=== PATIENT | female | born 1995 | race Caucasian/White ===

== ENCOUNTER 2016-11-02 10:46 | Emergency (ER) | payer OTHER ==
[~2016-11-02] VITALS: Ht 152.4 cm; Wt 84.0 kg
[2016-11-02 10:53] VITALS: Ht 152.4 cm; Wt 84.0 kg
[2016-11-02] MEDS ORDERED: UDROBDM PO (11:07)
[2016-11-02] MEDS ORDERED: AZIT250T94 PO (11:07)
--- NOTE | 2016-11-02 11:09 | ERD ---
ER Documentation Chief Complaint Date/Time DATE: 11/02/16 TIME: 11:07 Chief Complaint fever and cough x 1 week HPI 21-year-old female presents with fever and cough over the last week. She states there is productive sputum. There is no fever triage. There is no history of vomiting, abdominal pain, diarrhea, urinary complaints, neck stiffness, rashes. ROS All systems reviewed and are negative except as per history of present illness. Medications Home Meds Active Scripts Guaifenesin-Dextromethorphan* (Robitussin* DM) 100MG/10MG/5ML Syrup, 5 ML PO Q4H for 5 Days, ML Prov:DONYA RUSH MD 11/02/16 Azithromycin* (Zithromax*) 250 Mg Tablet, 250 MG PO .ZPACK DIRECTED, #6 TAB TAKE 500 MG (2 TABS) THE FIRST DAY THEN 250 MG (1 TAB) DAYS 2-5 Prov:DONYA RUSH MD 11/02/16 Reported Medications [None] No Conflict Check 05/19/12 Allergies Allergies: Coded Allergies: No Known Drug Allergies (Verified Allergy, Unknown, 07/05/14) No Known Drug Allergy (Verified Allergy, Unknown, 01/19/14) PMhx/Soc History of Surgery: No Anesthesia Reaction: No Hx Neurological Disorder: No Hx Respiratory Disorders: No Hx Cardiac Disorders: No Hx Psychiatric Problems: No Hx Miscellaneous Medical Probl: No Hx Alcohol Use: No Hx Substance Use: No Hx Tobacco Use: No Physical Exam Vitals Vital Signs Date Time Temp Pulse Resp B/P Pulse Ox O2 Delivery O2 Flow Rate FiO2 11/02/16 10:53 98.2 100 18 126/72 97 Physical Exam Const: [] Alert, [id number]. Pleasant. Head: Atraumatic Eyes: Normal Conjunctiva ENT: Normal External Ears, Nose and Mouth. TMs and oropharynx normal. Neck: Full range of motion..~ No meningismus. Resp: Clear to auscultation bilaterally. No rales or wheezing retractions appreciated. Cardio: Regular rate and rhythm, no murmurs Abd: Soft, non tender, non distended. Normal bowel sounds Skin: No petechiae or rashes Back: No midline or flank tenderness Ext: No cyanosis, or edema Neur: Awake and alert Psych: Normal Mood and Affect Procedures/MDM Patient presents with productive cough for the last week without evidence of hypoxemia or respiratory distress. Child is here for URI symptoms over the last week as well. Given the duration and productive cough patient was treated with Zithromax, Robitussin. The patient was stable with no new complaints during the ER course. Clinically, there is no current evidence to suggest meningitis, sepsis, acute abdomen, pneumonia, acute coronary syndrome, pulmonary embolism, or any other emergent condition appearing to require further evaluation or hospitalization. The patient should certainly return for any new or worsening symptoms per the aftercare instructions. They should otherwise follow-up with her primary care doctor for reevaluation this week. Departure Diagnosis: Primary Impression: URI, acute Condition: Stable Patient Instructions: Acute Bronchitis Additional Instructions: Recheck for new or worsening symptoms with primary care doctor. DONYA RUSH MD Nov 02, 2016 11:08
== END 2016-11-02 11:34 | disposition home or self-care (01) ==
LOC: FTE 10:46
DX: J06.9 Acute upper respiratory infection, unspecified (principal)
CPT/HCPCS: 99283